=== PATIENT | male | born 1965 | race American Indian/Alaskan Native ===

== ENCOUNTER 2016-08-23 17:23 | Emergency (ER) | payer SELFPAY ==
[~2016-08-23] VITALS: Ht 170.2 cm; Wt 103.0 kg
[2016-08-23 17:24] VITALS: BP 180/85
== END 2016-08-23 21:26 | disposition left against medical advice (07) ==
LOC: ER 17:23
DX: M54.5 Low back pain (principal); Z53.21 Procedure and treatment not carried out due to patient leaving prior to being seen by health care provider